=== PATIENT | male | born 1960 | race Two or more races ===

== ENCOUNTER 2018-07-17 06:15 | Emergency (ER) | payer OTHER ==
[~2018-07-17] VITALS: Ht 177.8 cm; Wt 102.1 kg
[2018-07-17] MEDS ORDERED: SINGULAIR 4MG4 MG (06:20)
[2018-07-17] MEDS ORDERED: FORTAMET1000 MG (06:20)
== END 2018-07-17 08:57 | disposition home or self-care (01) ==
LOC: ER 06:15
DX: M54.89 Other dorsalgia (principal)

== ENCOUNTER 2024-02-20 07:10 | Outpatient (CLI) | payer OTHER ==
[~2024-02-20 07:10] MED LIST: FORTAMET1000 MG; SINGULAIR 4MG4 MG
== END 2024-02-20 07:13 | disposition home or self-care (01) ==
LOC: NUCLEAR 07:10
PROVIDERS: ATTEND Internal Medicine
DX: I20.9 Angina pectoris, unspecified (principal)
CPT/HCPCS: 78452; 93017; A9500